=== PATIENT | female | born 1985 | race Caucasian/White ===

== ENCOUNTER 2025-03-12 08:31 | Emergency (ER) | payer OTHER ==
[2025-03-12] MEDS: BENZONATATE 100 MG CAP PO STA (09:15)
[2025-03-12] MEDS: ACETAMINOPHEN TAB 500 MG TAB PO STA (09:16)
[2025-03-12] MEDS: diphenhydrAMINE 25 MG CAP PO STA (09:17)
[2025-03-12] MEDS: KETOROLAC 15 MG/ML 1 ML VIAL IM STA (09:17)
[2025-03-12] MEDS: DEXAMETHASONE SOD PHOSPHATE 10 MG/ML 1 ML VIAL IM STA (09:17)
--- NOTE | 2025-03-12 09:19 | ED ---
Headache HPI - General Chief Complaint: Headache Stated Complaint: headache Time Seen by Provider: 03/12/25 08:48 Source: patient, RN notes reviewed Mode of arrival: wheelchair Limitations: no limitations - History of Present Illness Initial Comments: This is a 39-year-old female who presents to the emergency department for coughing and congestion. States that starting yesterday she developed a headache that would occur anytime she coughed. States that it felt like a pressure sensation in the front of her head. Pain is only present when she coughs and not when sitting still. She has minor sensitivity to light. Denies any nausea or vomiting. The coughing started a couple of days ago. Denies any chest pain or shortness of breath. MD Complaint: headache - Related Data Previous Rx's Medication Instructions Recorded Benzonatate [Tessalon Perle] 200 mg PO TID PRN #20 capsule 03/12/25 Ketorolac [Toradol] 10 mg PO Q6HR PRN #15 tab 03/12/25 Allergies Allergy/AdvReac Type Severity Reaction Status Date / Time Iodinated Contrast Media Allergy Anaphylaxis Verified 03/12/25 08:47 Penicillins Allergy Anaphylaxis Verified 03/12/25 08:47 Review of Systems ROS Statement: Those systems with pertinent positive or pertinent negative responses have been documented in the HPI. ROS Other: All systems not noted in ROS Statement are negative. Past Medical History Past Medical History: No Reported History History of Any Multi-Drug Resistant Organisms: None Reported Additional Past Surgical History / Comment(s): ankle, Smoking Status: Current every day smoker Past Alcohol Use History: Occasional Past Drug Use History: None Reported General Exam Limitations: no limitations General appearance: alert, in no apparent distress Head exam: Present: atraumatic, normocephalic, normal inspection Eye exam: Present: normal appearance, PERRL, EOMI. Absent: scleral icterus, conjunctival injection, periorbital swelling ENT exam: Present: other (Tenderness to palpation over the frontal and maxillary sinuses) Respiratory exam: Present: normal lung sounds bilaterally. Absent: respiratory distress, wheezes, rales, rhonchi, stridor Cardiovascular Exam: Present: regular rate, normal rhythm Neurological exam: Present: alert, oriented X3, CN II-XII intact Psychiatric exam: Present: normal affect, normal mood Skin exam: Present: warm, dry, intact, normal color. Absent: rash Course Vital Signs 03/12/25 03/12/25 03/12/25 08:44 09:22 10:40 Temperature 97.8 F 97.9 F Pulse Rate 77 71 Respiratory 17 18 16 Rate Blood Pressure 130/94 125/87 O2 Sat by Pulse 99 99 Oximetry Medical Decision Making - Medical Decision Making This is a 39-year-old female who presents to the emergency department for coughing and headaches. Was pt. sent in by a medical professional or institution? @ -No Did you speak to anyone other than the patient for history? @ -No Did you review nursing and triage notes? @ -Yes, and I agree, it is accurate with regards to the patient's symptoms. Were old charts reviewed? @ -No Differential Diagnosis? @ -Differential Cough: Influenza, Covid, RSV, croup, allergic rhinitis, GERD, pneumonia, bronchitis, COPD, viral pharyngitis, streptococcal pharyngitis, this is not meant to be an all-inclusive list. EKG interpreted by me (3pts min.)? @ -Not obtained X-rays interpreted by me (1pt min.)? @ -Chest x-ray obtained, my interpretation identifies no localized consolidations or infiltrates. CT interpreted by me (1pt min.)? @ -Not obtained U/S interpreted by me (1pt. min.)? @ -Not obtained What testing was considered but not performed? (CT, X-rays, U/S, labs)? Why? @ -None What meds were considered but not given? Why? @ -None Did you discuss the management of the patient with other professionals? @ -No Did you reconcile home meds? @ -No Was smoking cessation discussed for >3mins.? @ -No Was critical care preformed (if so, how long)? @ -No Were there social determinants of health that impacted care today? How? (Homelessness, low income, unemployed, alcoholism, drug addiction, trans portation, low edu. Level, literacy, decrease access to med. care, [facility], rehab)? @ -No Was there de-escalation of care discussed even if they declined? (Discuss DNR or withdrawal of care, Hospice)? @ -No What co-morbidities impacted this encounter? (DM, HTN, Smoking, COPD, CAD, Cancer, CVA, Hep., AIDS, mental health diagnosis, sleep apnea, morbid obesity)? @ -None Was patient admitted / discharged? @ -Discharged. COVID, influenza, and RSV testing negative. Chest x-ray reveals no acute process. Patient likely exhibiting a sinus headache given that it is only present when she coughs and she is tender on palpation. Advised that sinusitis is typically viral in nature. Toradol and Tessalon Perles pre scribed for further management. Advised follow-up with her PCP for reevaluation. Patient discharged home in stable condition. Case discussed with ED attending Dr. Brown. Return precautions reviewed in depth, the patient is instructed to return to the emergency department with any new, worsening, or concerning symptoms. Patient verbalized understanding. Undiagnosed new problem with uncertain prognosis? @ -None Drug Therapy requiring intensive monitoring for toxicity (Heparin, Nitro, Insulin, Cardizem)? @ -None Were any procedures done? @ -None Diagnosis/symptom? @ -Sinus headache, acute sinusitis, URI Acute, or Chronic, or Acute on Chronic? @ -Acute Uncomplicated (without systemic symptoms) or Complicated (systemic symptoms)? @ -Uncomplicated Side effects of treatment? @ -None Exacerbation, Progression, or Severe Exacerbation] @ -Not applicable Poses a threat to life or bodily function? @ -No - Lab Data Lab Results 03/12/25 Range/Units 08:56 Influenza Type A (PCR) Not Detected (Not Detectd) Influenza Type B (PCR) Not Detected (Not Detectd) RSV (PCR) Not Detected (Not Detectd) SARS-CoV-2 (PCR) Not Detected (Not Detectd) - Radiology Data Radiology results: report reviewed, image reviewed Disposition Clinical Impression: Sinus headache, Acute sinusitis, URI (upper respiratory infection) Disposition: HOME SELF-CARE Instructions (If sedation given, give patient instructions): Sinusitis (ED), Acute Headache (ED) Additional Instructions: Return to the emergency department with any new, worsening, or concerning symptoms. Take the Toradol with Tylenol as needed for pain relief. If you choose to take the Toradol, do not take any other anti-inflammatories such as ibuprofen, take one or the other. Take the Tessalon Perles up to every 8 hours as needed for coughing. Follow up with your primary care provider in 1-2 days. Prescriptions: Benzonatate [Tessalon Perle] 200 mg PO TID PRN #20 capsule PRN Reason: Cough Ketorolac [Toradol] 10 mg PO Q6HR PRN #15 tab PRN Reason: Pain Is patient prescribed a controlled substance at d/c from ED?: No Referrals: None,Stated [Primary Care Provider] - 1-2 days Time of Disposition: 10:23
--- NOTE | 2025-03-12 09:33 | XR ---
EXAMINATION TYPE: XR chest 2V DATE OF EXAM: 03/12/2025 9:07 AM COMPARISON: None. CLINICAL INDICATION: Female, 39 years old with history of Cough, TECHNIQUE: XR chest 2V view(s) obtained. FINDINGS: The heart size is normal. The pulmonary vasculature is normal. The lungs are clear. IMPRESSION: 1. No acute pulmonary process. [facility], , 03/12/2025 9:31 AM
[2025-03-12 09:52] LABS: Influenza A Not Detected (Not Detectd); Influenza B Not Detected (Not Detectd); RSV Not Detected (Not Detectd)
[2025-03-12 10:42] VITALS: BP 125/87; PULSE 71; RESP 16; TEMP 97.9
== END 2025-03-12 10:42 | disposition home or self-care (01) ==
LOC: EC 08:31
DX: J01.90 Acute sinusitis, unspecified (principal); J06.9 Acute upper respiratory infection, unspecified; F17.200 Nicotine dependence, unspecified, uncomplicated; Z91.041 Radiographic dye allergy status; Z88.0 Allergy status to penicillin
CPT/HCPCS: 87636; 71046; 99284; 96372 ×2; J1100; J1885

== ENCOUNTER 2025-06-03 19:37 | Emergency (ER) | payer MEDICARE ==
[2025-06-03 19:42] VITALS: BP 136/91; PULSE 77; RESP 18; TEMP 98.5
--- NOTE | 2025-06-03 19:52 | ED ---
Chest Pain HPI - General Chief Complaint: Chest Pain Stated Complaint: Chest pain,SOB Time Seen by Provider: 06/03/25 19:51 Source: patient, RN notes reviewed Mode of arrival: ambulatory Limitations: no limitations - History of Present Illness Initial Comments: Quick [id number] female presenting for chest pain since this morning. States she did not go to work today due to the chest pain however went swimming this afternoon and afterwards noted an episode of nausea/vomiting. - Related Data Previous Rx's Medication Instructions Recorded Benzonatate [Tessalon Perle] 200 mg PO TID PRN #20 capsule 03/12/25 Ketorolac [Toradol] 10 mg PO Q6HR PRN #15 tab 03/12/25 Allergies Allergy/AdvReac Type Severity Reaction Status Date / Time Iodinated Contrast Media Allergy Anaphylaxis Verified 06/03/25 19:42 Penicillins Allergy Anaphylaxis Verified 06/03/25 19:42 Review of Systems ROS Statement: Those systems with pertinent positive or pertinent negative responses have been documented in the HPI. ROS Other: All systems not noted in ROS Statement are negative. Past Medical History Past Medical History: Asthma History of Any Multi-Drug Resistant Organisms: None Reported Additional Past Surgical History / Comment(s): ankle, Past Psychological History: Anxiety Smoking Status: Current every day smoker Past Alcohol Use History: Occasional Past Drug Use History: None Reported General Exam - General Exam Comments Initial Comments: Visual Physical Exam Vital signs reviewed General: Well-appearing, nontoxic, no acute distress. Head: Normocephalic, atraumatic Eyes: PERRLA, EOMI ENT: Airway patent Chest: Nonlabored breathing Skin: No visual rash, normal skin tone Neuro: Alert and oriented 3 Musculoskeletal: No gross abnormalities Limitations: no limitations Course Vital Signs 06/03/25 19:40 Temperature 98.5 F Pulse Rate 77 Respiratory 18 Rate Blood Pressure 136/91 O2 Sat by Pulse 98 Oximetry Chest Pain MDM - MDM I completed the quick note portion of this chart signed Page Tristan PA-C Patient left AGAINST MEDICAL ADVICE before workup was completed Disposition Clinical Impression: Chest pain Disposition: LEFT AGAINST MEDICAL ADVICE Referrals: None,Stated [Primary Care Provider] - 1-2 days
--- NOTE | 2025-06-03 20:04 | XR ---
EXAMINATION TYPE: XR chest 2V DATE OF EXAM: 06/03/2025 7:57 PM COMPARISON: Chest radiographs from 03/12/2025 TECHNIQUE: XR chest 2V Frontal and lateral views of the chest. CLINICAL INDICATION:Female, 39 years old with history of Chest Pain; FINDINGS: Lungs/Pleura: There is no evidence of pleural effusion, focal consolidation, or pneumothorax. Pulmonary vascularity: Unremarkable. Heart/mediastinum: Cardiomediastinal silhouette is unremarkable. Musculoskeletal: No acute osseous pathology. IMPRESSION: No acute cardiopulmonary disease/process. [facility], , 06/03/2025 8:02 PM
[2025-06-03 20:28] LABS: HCT 39.7 % (37.2-46.3); HGB 13.7 g/dL (12.0-15.0); MCH 29.7 pg (27.0-32.0); MCHC 34.5 g/dL (32.0-37.0); MCV 86.1 fL (80.0-97.0); Platelet Count 427 10*3/uL (140-440); RBC 4.61 10*6/uL (4.10-5.20); RDW 13.0 % (11.5-14.5); WBC 13.30 10*3/uL (4.50-10.00)
[2025-06-03 20:37] LABS: INR 0.9 (<1.2); Partial Thromboplastin Time 24.2 sec (22.0-30.0); Prothrombin Time 9.9 sec (10.0-12.5)
[2025-06-03 20:41] LABS: ALT 16 U/L (4-34); African American GFR (CKD) >90 (>60 ml/min/1.73 sqM); Albumin 4.3 g/dL (3.5-5.0); Anion Gap 10 mmol/L; Blood Urea Nitrogen 15 mg/dL (7-17); Calcium 9.6 mg/dL (8.4-10.2); Carbon Dioxide 20 mmol/L (22-30); Chloride 109 mmol/L (98-107); Glucose 95 mg/dL (74-99); Magnesium 1.9 mg/dL (1.6-2.3); Non-African American GFR(CKD) 88 (>60 ml/min/1.73 sqM); Sodium 139 mmol/L (137-145); Total Protein 7.3 g/dL (6.3-8.2)
[2025-06-03 21:02] LABS: AST 27 U/L (14-36); Alkaline Phosphatase 54 U/L (38-126); Potassium 5.2 mmol/L (3.5-5.1)
[2025-06-03 22:01] LABS: Lymphocytes # (M) 6.65 k/uL (1.0-4.8); Monocytes # (M) 0.53 k/uL (0-1.0); Neutrophils # (M) 6.12 k/uL (1.3-7.7); Neutrophils % (M) 46 %; Total Cells Counted 100
== END 2025-06-03 22:55 | disposition left against medical advice (07) ==
LOC: EC 19:37
DX: R07.9 Chest pain, unspecified (principal); F17.200 Nicotine dependence, unspecified, uncomplicated; Z91.041 Radiographic dye allergy status; Z88.0 Allergy status to penicillin; Z53.29 Procedure and treatment not carried out because of patient's decision for other reasons
CPT/HCPCS: 36415; 71046; 80053; 83735; 84484; 85025; 85610; 85730; 93005; 99284